=== PATIENT | male | born 1970 | race Caucasian/White ===

== ENCOUNTER 2018-01-14 18:55 | Emergency (ER) | payer OTHER ==
[2018-01-14 19:12] VITALS: BP 135/64
[2018-01-14] MEDS ORDERED: TETANUS/DIPHTHERIA/PERTUSSIS 0.5 ML SYRINGE IM ONE (19:14)
[2018-01-14] MEDS ORDERED: BUFFERED LIDOCAINE 10 ML SYRINGE SUBQ STA (19:30)
--- NOTE | 2018-01-14 19:33 | ED Physician Documentation ---
PD HPI UPPER EXT INJURY - Stated complaint Stated Complaint: THUMB LAC - Chief complaint Chief Complaint: Laceration - History obtained from History obtained from: Patient - History of Present Illness Location: Other (Right-handed gentleman with unknown tetanus status accidentally cut himself while manipulating and ask at home just prior to arrival to the left thumb.) Review of Systems Constitutional: reports: Reviewed and negative Throat: reports: Reviewed and negative Cardiac: reports: Reviewed and negative PD PAST MEDICAL HISTORY - Past Medical History Past Medical History: Yes - Past Surgical History Past Surgical History: No - Allergies Allergies/Adverse Reactions: Allergies Allergy/AdvReac Type Severity Reaction Status Date / Time No Known Drug Allergies Allergy Verified 01/14/18 19:21 - Social History Does the pt smoke?: No Smoking Status: Never smoker Does the pt drink ETOH?: Yes Does the pt have substance abuse?: No - Immunizations Immunizations are current?: No Immunizations: TDAP >10years/unknown PD ED PE NORMAL - Vitals Vital signs reviewed: Yes - General General: Alert and oriented X 3, No acute distress - Extremities Extremities: Other (On the radial side of the tip of the left thumb just distal and lateral to the nailbed there is a 1 cm slightly gaping and flappy laceration without distal neurovascular compromise.) - Neuro Neuro: Alert and oriented X 3, Normal speech - Psych Psych: Normal mood, Normal affect Results - Vitals Vitals: Vital Signs - 24 hr 01/14/18 19:08 Temperature 37 C Heart Rate 64 Respiratory 16 Rate Blood Pressure 135/64 H O2 Saturation 98 Procedures - Laceration (location) L thumb Length in cm: 1.5 Wound type: Linear Neurovascular status: Sensory intact, Motor intact, Vascular intact Anesthesia: Lidocaine 1%, With bicarb Wound Preparation: Betadine, Irrigated copiously NS Skin layer closure: Nylon, Interrupted, Size #-0 - enter number (4-0), Sutures - enter # (4) Other: Patient tolerated well, No complications, Neurovascular intact, Dressing applied, Tetanus booster given Complexity: Simple Departure - Departure Disposition: 01 Home, Self Care Clinical Impression: Laceration Condition: Good Record reviewed to determine appropriate education?: Yes Instructions: ED Laceration Hand Comments: Come back for any signs of infection which would include: Redness, swelling, drainage, increased pain, or fevers. Follow-up with your physician in 14 days for suture removal. Your blood pressure was elevated today on check into the emergency department. This does not mean that you have hypertension, it is a common phenomenon to come to the emergency department and have elevated blood pressure. I recommend that you see your primary care physician within the week to have it rechecked when you are feeling better.
== END 2018-01-14 20:07 | disposition home or self-care (01) ==
LOC: ED 18:55
DX: S61.012A Laceration without foreign body of left thumb without damage to nail, initial encounter (principal); W45.8XXA Other foreign body or object entering through skin, initial encounter; Z23 Encounter for immunization; R03.0 Elevated blood-pressure reading, without diagnosis of hypertension; Y92.009 Unspecified place in unspecified non-institutional (private) residence as the place of occurrence of the external cause
CPT/HCPCS: 12001; 90471; 99283

== ENCOUNTER 2024-02-15 15:06 | Emergency (ER) | payer OTHER ==
[2024-02-15 15:26] VITALS: BP 138/84; O2SAT 98
--- NOTE | 2024-02-15 15:49 | ED Physician Documentation ---
PD HPI SKIN - Stated complaint Stated Complaint: RT FINGER LAC - Chief complaint Chief Complaint: Laceration - Additional information Additional information: 53-year-old male presents the emergency department for a right finger laceration. Patient was using an arm side and his hand got hit by the wood which backfired the blade onto his finger. Bleeding is well-controlled he says that he still has full range of motion to his finger with flexion extension not any blood thinners and is up-to-date with his tetanus shot. PD PAST MEDICAL HISTORY - Past Medical History Past Medical History: No Cardiovascular: None Respiratory: None Neuro: None Endocrine/Autoimmune: None GI: None : None HEENT: None Psych: None Musculoskeletal: None Derm: None - Past Surgical History Past Surgical History: No - Present Medications Home Medications: Ambulatory Orders Medication Instructions Recorded Confirmed No Known Home Medications 02/15/24 02/15/24 - Allergies Allergies/Adverse Reactions: Allergies Allergy/AdvReac Type Severity Reaction Status Date / Time No Known Drug Allergies Allergy Verified 02/15/24 15:19 - Social History Does the pt smoke?: No Smoking Status: Never smoker Does the pt drink ETOH?: Yes Does the pt have substance abuse?: No - Immunizations Immunizations are current?: No Immunizations: TDAP >10years/unknown PD ED PE NORMAL - Vitals Vital signs reviewed: Yes - General General: Alert and oriented X 3, No acute distress, Well developed/nourished - Derm Derm: Other (2 lacerations to right index finger to the lateral volar aspect.) - Extremities Extremities: Other (Right finger: No tendon exposure wounds appear to be superficial and just subcutaneous. Patient able to flex and extend against resistance to MCP MIP and DIP.) - Psych Psych: Normal mood Results - Vitals Vitals: Oxygen O2 Source Room air Procedures - Laceration (location) right finger laceration Length in cm: 5 (Laceration over the volar aspect of the finger including MIP joiint, exluding DIP, no fingernail involvement) Wound type: Curved, Flap, Superficial, Into subcut fat, Clean Neurovascular status: Sensory intact, Motor intact, Vascular intact Tendon involvement: Tendon intact Anesthesia: Marcaine 0.25% Wound preparation: Irrigated copiously NS, Wound explored, To the base Skin layer closure: Nylon, Interrupted, Size #-0 - enter number (4-0), Sutures - enter # (8) Other: Patient tolerated well, No complications, Neurovascular intact, Tetanus UTD 2nd rt finger laceratio Length in cm: 2 (2nd laceration lateral to the other laceration) Wound type: Linear, Into subcut fat, Clean Neurovascular status: Sensory intact Tendon involvement: Tendon intact Anesthesia: Marcaine 0.25% Wound preparation: Irrigated copiously NS Deep layer closure: # sutures - enter number Skin layer closure: Nylon, Interrupted, Size #-0 - enter number (4-0), Sutures - enter # (2) Other: Patient tolerated well, No complications, Neurovascular intact, Dressing applied, Tetanus UTD PD Medical Decision Making - ED course ED course: Wound inspected under direct bright light with good visualization. Area with linear laceration across soft tissue through adipose without exposure of muscle belly or tendon. No overt foreign body. Area hemostatic. Neurovascular exam congruent with above. Area extensively irrigated with sterile normal saline under pressure. Laceration repaired in simple fashion (please see procedure note for further details). Patient tolerated procedure well and neurovascular exam intact and unchanged post repair with intact distal pulses and cap refill. Cautious return precautions discussed w/ full understanding. Wound care discussed. Prompt follow up with primary care physician discussed and return for suture removal in 14 days. Departure - Departure Disposition: 01 Home, Self Care Clinical Impression: Laceration of right index finger Instructions: ED Laceration Hand Comments: Come back for any signs of infection which would include: Redness, swelling, drainage, increased pain, or fevers. You can wash it soap and water. Keep it covered and moist with bacitracin ointment which is available over the counter; avoid neosporin. Follow-up with your physician in 14 days for suture removal. Forms: PCP List Discharge Date/Time: 02/15/24 16:55
[2024-02-15] MEDS: BUPIVACAINE 0.5% PF 10 ML VIAL SUBQ STA (15:51)
[2024-02-15] MEDS: BACITRACIN ZINC OINT 1 PACKET TOP STA (16:50)
== END 2024-02-15 16:55 | disposition home or self-care (01) ==
LOC: ED 15:06
DX: S61.210A Laceration without foreign body of right index finger without damage to nail, initial encounter (principal); W26.0XXA Contact with knife, initial encounter
CPT/HCPCS: 12002; 99283